=== PATIENT | female | born 1995 | race Caucasian/White ===

== ENCOUNTER 2021-03-28 07:47 | Outpatient (REF) | payer OTHER, MEDICAID, SELFPAY ==
[2021-03-28 10:18] LABS: Folate 11.2 ng/mL (> or = 4.0); Vitamin B12 374 pg/mL (200-900)
[2021-03-28 11:31] LABS: Thyroid Stimulating Hormone 2.05 uIU/mL (0.32-4.0)
[2021-03-29 08:26] LABS: Lyme Abs Screen <0.90 index
[2021-03-29 09:52] LABS: Syphilis Screen Nonreactive (Nonreactive)
[2021-03-29 18:01] LABS: Ceruloplasmin 32 mg/dL (18-53)
[2021-03-31 11:11] LABS: Lamotrigine Lamictal 4.4 mcg/mL (4.0-18.0)
[2021-04-01 13:30] LABS: Transglutaminase Ab IgG <1.0 U/mL
== END 2021-03-28 07:48 | disposition home or self-care (01) ==
LOC: HO.LAB 07:47
PROVIDERS: PCP Physician Assistant; Visit Provider Internal Medicine
DX: R41.3 Other amnesia (principal); G40.909 Epilepsy, unspecified, not intractable, without status epilepticus; Z79.899 Other long term (current) drug therapy
CPT/HCPCS: 36415; 80175; 82390; 82607; 82746; 83516; 84443; 86617; 86618; 86780